=== PATIENT | female | born 1990 | race African-American/Black ===

== ENCOUNTER 2017-06-08 11:32 | Emergency (ER) | payer MEDICAID ==
[~2017-06-08] VITALS: Ht 167.6 cm; Wt 111.0 kg
[~2017-06-08 11:32] MED LIST: BACT800T5 PO; CEPH500 PO; DOXY100T PO; IBUP-232 PO; TRAM50 PO
[2017-06-08 11:34] VITALS: BP 112/69; PULSE 84; RESP 20; TEMP 98.1; O2SAT 89
[2017-06-08] MEDS ORDERED: SODIUM CHLOR 0.9% 1000 ML INJ 1,000 ML IV ONE (11:50)
--- NOTE | 2017-06-08 11:53 | PD ---
HPI Chief Complaint: Headache Time Seen by Provider: 11:45 Travel History International Travel<30 days: No Contact w/Intl Traveler<30days: No Traveled to known affect area: No History of Present Illness HPI This is a 26-year-old female who presents for evaluation of headache. Symptoms started 2-3 days ago. Pain is a throbbing frontal headache which is constant, worse when she is leaning forward and alleviated when she is leaning backwards. She has a history of migraines, occurs about once a week, this feels similar but worse than her usual migraines, unrelieved with [id number] Tylenol. Associated symptoms include mild nausea, photophobia and phonophobia. She denies vomiting, fevers or chills, rash, recent travel, recent illness, blurred vision. She reports that she is currently on her menstrual period. No other complaints at this time. PFSH Past Medical History GERD: Yes ?: Not LMP: 06/08/17 : 3 Para: 3 Past Surgical History Section: Yes Cholecystectomy: Yes Social History Alcohol Use: No Tobacco Use: No Substance Use: No Allergies-Medications (Allergen,Severity, Reaction): Coded Allergies: iodine (Unverified Allergy, Mild, 05/19/17) potassium iodide (Unverified Allergy, Mild, 05/19/17) povidone-iodine (Unverified Allergy, Mild, 05/19/17) sodium iodide (Unverified Allergy, Mild, 05/19/17) sodium iodide (Unverified Allergy, Mild, 05/19/17) Reported Meds & Prescriptions Reported Meds & Active Scripts Active No Active Prescriptions or Reported Medications Review of Systems Except as stated in HPI: all other systems reviewed are Neg Physical Exam Narrative GENERAL: Well-developed well-nourished female in no acute distress sitting upright in hospital bed vital signs reviewed SKIN: Warm and dry. HEAD: Atraumatic. Normocephalic. EYES: Pupils equal and round reactive to light extraocular muscles are intact. No scleral icterus. No injection or drainage. ENT: No nasal bleeding or discharge. Mucous membranes pink and moist. NECK: Trachea midline. No JVD. CARDIOVASCULAR: Regular rate and rhythm. No murmur appreciated. RESPIRATORY: No accessory muscle use. Clear to auscultation. Breath sounds equal bilaterally. GASTROINTESTINAL: Abdomen soft, non-tender, nondistended. Hepatic and splenic margins not palpable. MUSCULOSKELETAL: No obvious deformities. No edema NEUROLOGICAL: Awake and alert. No obvious cranial nerve deficits. Motor grossly within normal limits. Normal speech. Data Data Last Documented VS Vital Signs Date Time Temp Pulse Resp B/P (MAP) Pulse Ox O2 Delivery O2 Flow Rate FiO2 06/08/17 11:55 15 06/08/17 11:34 98.1 84 112/69 (83) 89 Room Air Orders Orders Iv Access Insert/Monitor (06/08/17 11:50) Ketorolac Inj (Toradol Inj) (06/08/17 12:00) Diphenhydramine Inj (Benadryl Inj) (06/08/17 12:00) Metoclopramide Inj (Reglan Inj) (06/08/17 12:00) Sodium Chlor 0.9% 1000 Ml Inj (Ns 1000 M (06/08/17 11:50) MDM Medical Decision Making Medical Screen Exam Complete: Yes Emergency Medical Condition: Yes Medical Record Reviewed: Yes Differential Diagnosis Migraine without aura, tension headache, pseudotumor cerebri, subarachnoid hemorrhage, intracranial mass, sinusitis Narrative Course This is a 26-year-old female with history of migraines presents for evaluation of a 2 to three-day throbbing frontal headache with photophobia, phonophobia, consistent with previous migraines but worse than usual which is what prompted evaluation for relief. Physical examination reveals no focal neurologic deficits. The plan is to treat the patient symptomatically with IV fluids, Toradol, Reglan and Benadryl. She will be monitored closely. 1251: Upon reexamination the patient feels significantly improved, her headache has resolved. She is stable for discharge. Diagnosis Primary Impression: Migraine Qualified Codes: G43.009 - Migraine without aura, not intractable, without status migrainosus Additional Instructions: Follow-up close with primary care physician. Return for any emergent medical conditions. Med/Other Pt SpecificInfo: No Change to Meds Scripts No Active Prescriptions or Reported Meds Disposition: 01 DISCHARGE HOME Condition: Stable Clem Cisneros Jun 08, 2017 11:53
[2017-06-08] MEDS ORDERED: METOCLOPRAMIDE HCL 10 MG/2 ML VIAL IVP ONE (12:00)
[2017-06-08] MEDS ORDERED: diphenhydrAMINE HCL 50 MG/ML VIAL IVP ONE (12:00)
[2017-06-08] MEDS ORDERED: KETOROLAC TROMETHAMINE 30 MG/ML (IVP) VIAL IVP ONE (12:00)
== END 2017-06-08 13:48 | disposition home or self-care (01) ==
LOC: NEPK 11:32
DX: G43.009 Migraine without aura, not intractable, without status migrainosus (principal)
CPT/HCPCS: 96374; 96375; 99284; J1200; J1885; J2765; J7030

== ENCOUNTER 2018-01-04 05:34 | Emergency (ER) | payer MEDICAID ==
[~2018-01-04] VITALS: Ht 167.6 cm; Wt 100.0 kg
[2018-01-04 05:38] VITALS: BP 127/85; PULSE 68; RESP 20; TEMP 98.8; O2SAT 100
[2018-01-04] MEDS ORDERED: SODIUM CHLORIDE 0.9% FLUSH 10 ML FLUSH IV FLUSH PRN (06:00)
[2018-01-04] MEDS ORDERED: KETOROLAC TROMETHAMINE 30 MG/ML (IVP) VIAL IVP ONE (06:30)
[2018-01-04 06:39] LABS: AUTOMATED NEUTROPHIL # 5.8 TH/MM3 (1.8-7.7); BASOPHIL % 0.4 % (0.0-2.0); EOSINOPHIL % 0.3 % (0.0-4.0); HEMATOCRIT 38.1 % (35.0-46.0); HEMOGLOBIN 12.7 GM/DL (11.6-15.3); LYMPH % 22.3 % (9.0-44.0); LYMPHOCYTE # 1.9 TH/MM3 (1.0-4.8); MEAN CELL VOLUME 88.5 FL (80.0-100.0); MEAN CORPUSCULAR HEMOGLOBIN 29.5 PG (27.0-34.0); MEAN CORPUSCULAR HGB CONC 33.3 % (32.0-36.0); MEAN PLATELET VOLUME 8.7 FL (7.0-11.0); MONO % 9.7 % (0.0-8.0); MONOCYTE # 0.8 TH/MM3 (0-0.9); NEUT % 67.3 % (16.0-70.0); PLATELET COUNT 291 TH/MM3 (150-450); RED BLOOD COUNT 4.31 MIL/MM3 (4.00-5.30); RED CELL DISTRIBUTION WIDTH 14.2 % (11.6-17.2); WHITE BLOOD COUNT 8.6 TH/MM3 (4.0-11.0)
[2018-01-04] MEDS ORDERED: NAPR500T2 PO (06:51)
--- NOTE | 2018-01-04 06:51 | PD ---
HPI Chief Complaint: Abdominal Pain Time Seen by Provider: 05:46 Travel History International Travel<30 days: No Contact w/Intl Traveler<30days: No Traveled to known affect area: No History of Present Illness HPI 27-year-old woman presents emergency department complaining of right lower quadrant abdominal pain. Symptoms started about a week or so ago. Worse with palpation. Been constant since onset. She has had some decreased appetite with it. States she otherwise has been feeling generally well and healthy. She is sexually active one male partner. No vaginal discharge. No symptoms. History of , tubal ligation, and cholecystectomy. Last menstrual period was at the end of December. History Past Medical History Narrative Medical Gastritis Tetanus Vaccination: Unknown Influenza Vaccination: No LMP: 01/01/2018 : 3 Para: 3 Social History Alcohol Use: No Tobacco Use: No Allergies-Medications (Allergen,Severity, Reaction): Coded Allergies: iodine (Unverified Allergy, Mild, 01/04/18) potassium iodide (Unverified Allergy, Mild, 01/04/18) povidone-iodine (Unverified Allergy, Mild, 01/04/18) sodium iodide (Unverified Allergy, Mild, 01/04/18) sodium iodide (Unverified Allergy, Mild, 01/04/18) Reported Meds & Prescriptions Reported Meds & Active Scripts Active Naproxen 500 Mg Tab 500 Mg PO BID Review of Systems Except as stated in HPI: all other systems reviewed are Neg Physical Exam Narrative GENERAL: Well-appearing 27-year-old woman, no acute distress. SKIN: Focused skin assessment warm/dry. HEAD: Atraumatic. Normocephalic. EYES: Pupils equal and round. No scleral icterus. No injection or drainage. ENT: No nasal bleeding or discharge. Mucous membranes pink and moist. NECK: Trachea midline. No JVD. CARDIOVASCULAR: Regular rate and rhythm. No murmur appreciated. RESPIRATORY: No accessory muscle use. Clear to auscultation. Breath sounds equal bilaterally. GASTROINTESTINAL: Abdomen is obese, soft, minimal lower abdominal tenderness, more on the right side. No guarding. MUSCULOSKELETAL: No obvious deformities. No clubbing. No cyanosis. No edema. NEUROLOGICAL: Awake and alert. No obvious cranial nerve deficits. Motor grossly within normal limits. Normal speech. : Normal external female genitalia. Scant vaginal discharge. Cervix is grossly normal. On exam, minimal cervical motion tenderness. No palpable uterine enlargement or adnexal masses. Data Data Last Documented VS Vital Signs Date Time Temp Pulse Resp B/P (MAP) Pulse Ox O2 Delivery O2 Flow Rate FiO2 01/04/18 05:38 98.8 68 20 127/85 (99) 100 Orders Orders Complete Blood Count With Diff (01/04/18 06:00) Comprehensive Metabolic Panel (01/04/18 06:00) Lipase (01/04/18 06:00) Urinalysis - C+S If Indicated (01/04/18 06:00) Iv Access Insert/Monitor (01/04/18 06:00) Sodium Chloride 0.9% Flush (Ns Flush) (01/04/18 06:00) Ed Urine Pregnancytest Poc (01/04/18 06:00) Gc And Chlamydia Pcr (01/04/18 06:02) Wet Prep Profile (01/04/18 06:02) Ketorolac Inj (Toradol Inj) (01/04/18 06:30) Labs Laboratory Tests Test 01/04/18 05:44 01/04/18 06:00 01/04/18 06:10 01/04/18 06:20 White Blood Count 8.6 TH/MM3 Red Blood Count 4.31 MIL/MM3 Hemoglobin 12.7 GM/DL Hematocrit 38.1 % Mean Corpuscular Volume 88.5 FL Mean Corpuscular Hemoglobin 29.5 PG Mean Corpuscular Hemoglobin Concent 33.3 % Red Cell Distribution Width 14.2 % Platelet Count 291 TH/MM3 Mean Platelet Volume 8.7 FL Neutrophils (%) (Auto) 67.3 % Lymphocytes (%) (Auto) 22.3 % Monocytes (%) (Auto) 9.7 % Eosinophils (%) (Auto) 0.3 % Basophils (%) (Auto) 0.4 % Neutrophils # (Auto) 5.8 TH/MM3 Lymphocytes # (Auto) 1.9 TH/MM3 Monocytes # (Auto) 0.8 TH/MM3 Eosinophils # (Auto) 0.0 TH/MM3 Basophils # (Auto) 0.0 TH/MM3 CBC Comment DIFF FINAL Differential Comment Urine Color YELLOW Urine Turbidity CLOUDY Urine pH 6.5 Urine Specific [place] 1.024 Urine Protein 30 mg/dL Urine Glucose (UA) NEG mg/dL Urine Ketones NEG mg/dL Urine Occult Blood NEG Urine Nitrite NEG Urine Bilirubin NEG Urine Urobilinogen LESS THAN 2.0 MG/DL Urine Leukocyte Esterase SMALL Urine RBC 2 /hpf Urine WBC 4 /hpf Urine Squamous Epithelial Cells 29 /hpf Urine Bacteria RARE /hpf Urine Mucus FEW /lpf Microscopic Urinalysis Comment CULT NOT INDICATED Clue Cells (Wet Prep) NONE SEEN Vaginal Trichomonas (Wet Prep) NONE SEEN Vaginal Yeast (Wet Prep) NONE SEEN MDM Medical Decision Making Medical Screen Exam Complete: Yes Emergency Medical Condition: Yes Interpretation(s) LABS: CBC is unremarkable. CMP UA is unremarkable. Wet preps negative GC chlamydia pending. Differential Diagnosis Ovarian cyst, ovarian mass, appendicitis, PID, UTI, other Narrative Course Medical decision making INITIAL is a 27-year-old who presents emerged prior right lower quadrant abdominal pain. Really benign abdominal exam. Symptoms been ongoing for a week. Only she has appendicitis. She has minimal pelvic tenderness on bimanual exam. No vaginal discharge. Sexually active one male partner but only she has PID. I think this is likely . Recommend NSAIDs, will check swabs, treat if positive, otherwise outpatient follow-up. Diagnosis Primary Impression: Abdominal pain Additional Instructions: Take naproxen as needed for pain. Follow-up with your [facility] doctor in the next 1-2 weeks for repeat evaluation if symptoms persist. Return to the emergency department for any worsening abdominal pain, fevers, vomiting, or any other new or worsening symptoms. Med/Other Pt SpecificInfo: Prescription(s) given Scripts Naproxen (Naproxen) 500 Mg Tab 500 MG PO BID, #20 TAB 0 Refills Prov: Kvng Roberts MD 01/04/18 Disposition: DISCHARGE HOME Condition: Stable Kvng Roberts MD Jan 04, 2018 06:51
[2018-01-04 06:57] LABS: BACTERIA, URINE RARE /hpf; BILIRUBIN, URINE NEG (NEG); BLOOD, URINE NEG (NEG); GLUCOSE,URINE NEG (NEG); KETONE, URINE NEG (NEG); MUCUS URINE FEW /lpf (OCC); NITRITE,URINE NEG (NEG); PH, URINE 6.5 (5.0-8.5); SQUAMOUS EPITHELIAL CELL URINE 29 /hpf (0-5); URINE COLOR YELLOW (YELLW/STRAW); URINE LEUKOCYTE ESTERASE SMALL (NEG)
[2018-01-04 07:07] LABS: ALBUMIN 3.4 GM/DL (3.4-5.0); AST (GOT) 16 U/L (15-37); BLOOD UREA NITROGEN 10 MG/DL (7-18); CALCIUM 9.2 MG/DL (8.5-10.1); CHLORIDE 107 MEQ/L (98-107); CREATININE 0.79 MG/DL (0.50-1.00); GLOMERULAR FILTRATION RATE 104 ML/MIN (>89); GLUCOSE,RANDOM 105 MG/DL (74-106); SODIUM (NA) 138 MEQ/L (136-145)
[2018-01-04 07:13] LABS: ALKALINE PHOSPHATASE 76 U/L (45-117); ALT (GPT) 21 U/L (10-53); TOTAL BILIRUBIN ADULT 1.2 MG/DL (0.2-1.0); TOTAL PROTEIN 7.8 GM/DL (6.4-8.2)
[2018-01-05] MEDS ORDERED: PROM25TA10 PO (16:19)
[2018-01-05] MEDS ORDERED: IBUP-232 PO (16:19)
== END 2018-01-04 07:18 | disposition home or self-care (01) ==
LOC: NEPC 05:34
DX: R10.31 Right lower quadrant pain (principal)
CPT/HCPCS: 80053; 81001; 83690; 84703; 85025; 87210; 87491; 87591; 96374; 99284; J1885

== ENCOUNTER 2018-01-05 10:31 | Emergency (ER) | payer MEDICAID ==
[~2018-01-05 10:31] MED LIST changes: -BACT800T5 PO; -CEPH500 PO; -DOXY100T PO; -IBUP-232 PO; +NAPR500T2 PO; -TRAM50 PO
[2018-01-05 10:58] VITALS: BP 129/82; PULSE 73; RESP 16; TEMP 99.7; O2SAT 100
[2018-01-05] MEDS ORDERED: ONDANSETRON ODT 4 MG TAB PO ONE (11:15)
[2018-01-05 11:37] LABS: AUTOMATED NEUTROPHIL # 7.3 TH/MM3 (1.8-7.7); BASOPHIL # 0.1 TH/MM3 (0-0.2); BASOPHIL % 0.7 % (0.0-2.0); EOSINOPHIL # 0.2 TH/MM3 (0-0.4); EOSINOPHIL % 1.7 % (0.0-4.0); HEMATOCRIT 40.4 % (35.0-46.0); HEMOGLOBIN 13.4 GM/DL (11.6-15.3); LYMPH % 15.7 % (9.0-44.0); LYMPHOCYTE # 1.6 TH/MM3 (1.0-4.8); MEAN CELL VOLUME 88.8 FL (80.0-100.0); MEAN CORPUSCULAR HEMOGLOBIN 29.5 PG (27.0-34.0); MEAN CORPUSCULAR HGB CONC 33.2 % (32.0-36.0); MEAN PLATELET VOLUME 8.7 FL (7.0-11.0); MONO % 9.3 % (0.0-8.0); MONOCYTE # 0.9 TH/MM3 (0-0.9); NEUT % 72.6 % (16.0-70.0); PLATELET COUNT 296 TH/MM3 (150-450); RED BLOOD COUNT 4.54 MIL/MM3 (4.00-5.30); RED CELL DISTRIBUTION WIDTH 14.2 % (11.6-17.2); WHITE BLOOD COUNT 10.1 TH/MM3 (4.0-11.0)
--- NOTE | 2018-01-05 11:45 | PD ---
HPI Chief Complaint: Abdominal Pain Time Seen by Provider: 11:45 Travel History International Travel<30 days: No Contact w/Intl Traveler<30days: No Traveled to known affect area: No History of Present Illness HPI 27-year-old -[place] female presents emergency department with worsening and ongoing right sided abdominal pain. She states is localized now to the right lower quadrant. Patient was seen on January 04 and felt to have a ovarian cyst, with negative urine, normal white count, and negative GC chlamydia. Imaging was not done at that time. Patient states she has ongoing nausea, vomiting, and pain. She states she has not eaten since Thursday, and is now Thursday. She states decreased fluid intake with decreased urine output. Patient states she has felt feverish. She denies upper respiratory symptoms, chest pain, or shortness of breath. She denies flank pain or vaginal discharge. She is sexually active with one single partner. She denies diarrhea. Pain is currently 8-9 out of 10. Patient is allergic to iodine. PFSH Past Medical History Diminished Hearing: No GERD: Yes : 3 Para: 3 Past Surgical History Section: Yes Cholecystectomy: Yes Social History Alcohol Use: No Tobacco Use: No Substance Use: No Allergies-Medications (Allergen,Severity, Reaction): Coded Allergies: iodine (Unverified Allergy, Mild, 01/05/18) potassium iodide (Unverified Allergy, Mild, 01/05/18) povidone-iodine (Unverified Allergy, Mild, 01/05/18) sodium iodide (Unverified Allergy, Mild, 01/05/18) sodium iodide (Unverified Allergy, Mild, 01/05/18) Reported Meds & Prescriptions Reported Meds & Active Scripts Active Naproxen 500 Mg Tab 500 Mg PO BID Review of Systems Except as stated in HPI: all other systems reviewed are Neg General / Constitutional: Positive: Fever (Subjective), Chills Eyes: No: Visual changes HENT: Positive: Lightheadedness, No: Headaches, Vertigo, Sore Throat, Rhinitis , Rhinorrhea, Congestion, Nosebleed, Neck Stiffness, Neck Pain, Masses, Dental Difficulties, Earache Cardiovascular: No: Chest Pain or Discomfort Respiratory: No: Shortness of Breath Gastrointestinal: Positive: Nausea, Vomiting, Abdominal Pain, Loss of Appetite , No: Diarrhea, Hematemesis, Hematochezia, Constipation, Indigestion, Dysphagia Genitourinary: Positive: Decreased Urinary Output, No: Urgency, Frequency, Dysuria Musculoskeletal: No: Pain Skin: No Rash Neurologic: No: Weakness Psychiatric: No: Depression Endocrine: No: Polydipsia Hematologic/Lymphatic: No: Easy Bruising Physical Exam Narrative GENERAL: Patient appears in moderate distress per SKIN: Warm and dry. She has decreased pallor but no diaphoresis. Turgor is somewhat diminished HEAD: Atraumatic. Normocephalic. EYES: Pupils equal and round. No scleral icterus. No injection or drainage. ENT: No nasal bleeding or discharge. Mucous membranes pink and somewhat dry. Pharynx is clear. Airways patent NECK: Trachea midline. Supple nontender. CARDIOVASCULAR: Regular rate and rhythm. RESPIRATORY: No accessory muscle use. Clear to auscultation. Breath sounds equal bilaterally. GASTROINTESTINAL: Abdomen soft, moderate right sided tenderness in both upper and lower quadrant somewhat more localized to the right lower, nondistended. No CVA tenderness. Mild guarding. Question of rebound. Hepatic and splenic margins not palpable. MUSCULOSKELETAL: Extremities without clubbing, cyanosis, or edema. No obvious deformities. NEUROLOGICAL: Awake and alert. No obvious cranial nerve deficits. Motor grossly within normal limits. Five out of 5 muscle strength in the arms and legs. Normal speech. PSYCHIATRIC: Appropriate mood and affect; insight and judgment normal. Data Data Last Documented VS Vital Signs Date Time Temp Pulse Resp B/P (MAP) Pulse Ox O2 Delivery O2 Flow Rate FiO2 01/05/18 14:55 77 16 128/82 (97) 99 Room Air 01/05/18 10:58 99.7 Orders Orders Complete Blood Count With Diff (01/05/18 11:02) Comprehensive Metabolic Panel (01/05/18 11:02) Urinalysis - C+S If Indicated (01/05/18 11:02) Ed Urine Pregnancytest Poc (01/05/18 11:02) Iv Access Insert/Monitor (01/05/18 11:02) Oxygen Administration (01/05/18 11:02) Oximetry (01/05/18 11:02) Lipase (01/05/18 11:02) Ondansetron Odt (Zofran Odt) (01/05/18 11:15) Lactic Acid (01/05/18 11:48) Ct Abd/Pel W/O Iv Contrast (01/05/18 11:48) Ecg Monitoring (01/05/18 11:48) NPO (01/05/18 11:48) Morphine Inj (Morphine Inj) (01/05/18 12:00) Ondansetron Inj (Zofran Inj) (01/05/18 12:00) Sodium Chlor 0.9% 1000 Ml Inj (Ns 1000 M (01/05/18 11:48) Sodium Chloride 0.9% Flush (Ns Flush) (01/05/18 12:00) Chest, Single Ap (01/05/18 11:48) Famotidine Inj (Pepcid Inj) (01/05/18 12:00) Ondansetron Inj (Zofran Inj) (01/05/18 15:30) Labs Laboratory Tests Test 01/05/18 11:13 01/05/18 11:28 01/05/18 15:20 White Blood Count 10.1 TH/MM3 Red Blood Count 4.54 MIL/MM3 Hemoglobin 13.4 GM/DL Hematocrit 40.4 % Mean Corpuscular Volume 88.8 FL Mean Corpuscular Hemoglobin 29.5 PG Mean Corpuscular Hemoglobin Concent 33.2 % Red Cell Distribution Width 14.2 % Platelet Count 296 TH/MM3 Mean Platelet Volume 8.7 FL Neutrophils (%) (Auto) 72.6 % Lymphocytes (%) (Auto) 15.7 % Monocytes (%) (Auto) 9.3 % Eosinophils (%) (Auto) 1.7 % Basophils (%) (Auto) 0.7 % Neutrophils # (Auto) 7.3 TH/MM3 Lymphocytes # (Auto) 1.6 TH/MM3 Monocytes # (Auto) 0.9 TH/MM3 Eosinophils # (Auto) 0.2 TH/MM3 Basophils # (Auto) 0.1 TH/MM3 CBC Comment DIFF FINAL Differential Comment Blood Urea Nitrogen 10 MG/DL Creatinine 0.90 MG/DL Random Glucose 91 MG/DL Total Protein 8.4 GM/DL Albumin 3.6 GM/DL Calcium Level 9.2 MG/DL Alkaline Phosphatase 87 U/L Aspartate Amino Transf (AST/SGOT) 15 U/L Alanine Aminotransferase (ALT/SGPT) 19 U/L Total Bilirubin 1.6 MG/DL Sodium Level 138 MEQ/L Potassium Level 3.6 MEQ/L Chloride Level 106 MEQ/L Carbon Dioxide Level 23.8 MEQ/L Anion Gap 8 MEQ/L Estimat Glomerular Filtration Rate 90 ML/MIN Lipase 98 U/L Lactic Acid Level 1.1 mmol/L Urine Color YELLOW Urine Turbidity HAZY Urine pH 7.5 Urine Specific [place] 1.028 Urine Protein 30 mg/dL Urine Glucose (UA) NEG mg/dL Urine Ketones 150 mg/dL Urine Occult Blood NEG Urine Nitrite NEG Urine Bilirubin NEG Urine Urobilinogen 4.0 MG/DL Urine Leukocyte Esterase NEG Urine RBC 6 /hpf Urine WBC 2 /hpf Urine Squamous Epithelial Cells 18 /hpf Urine Bacteria FEW /hpf Urine Mucus MANY /lpf Microscopic Urinalysis Comment CULT NOT INDICATED MDM Medical Decision Making Medical Screen Exam Complete: Yes Emergency Medical Condition: Yes Medical Record Reviewed: Yes Differential Diagnosis Nausea and vomiting. Bowel obstruction. Appendicitis. Gallbladder disease. Narrative Course Patient is uncomfortable, but appears medically stable. Labs ordered including CBC, CMP, lipase, lactic acid, urinalysis. Urine . Chest x-ray is ordered as well as CT of the abdomen and pelvis without contrast due to her allergy. IV access is obtained the patient is given 1000 mL normal saline bolus 2, Zofran 4 mg IV, and 4 mg morphine IV. Patient is given 20 mg Pepcid IV. CBC is within normal limits. Chemistries are unremarkable except for total bilirubin of 1.6, and protein of 8.4. Lactic acid is normal at 1.1. Chest x-ray is unremarkable for acute process per radiologist. CT scan of the abdomen shows no acute process per radiologist. Urinalysis is unremarkable for acute process. Patient is felt stable for discharge with diagnosis of viral gastroenteritis. She does not have a surgical abdomen. Patient is given Phenergan 25 mg every 6 hours as needed nausea and vomiting # 20. Patient also given ibuprofen 600 mg 4 times daily #40. Patient can take Tylenol as well for pain as needed. Patient should rest and push fluids for the next 2 days. Work note is given. Diagnosis Primary Impression: Abdominal pain Qualified Codes: R10.84 - Generalized abdominal pain Additional Impression: Viral gastroenteritis Referrals: Primary Care Physician Patient Instructions: Acute Diarrhea (ED), Acute Nausea and Vomiting (ED), Colitis (ED), General Instructions Additional Instructions: CBC is within normal limits. Chemistries are unremarkable except for total bilirubin of 1.6, and protein of 8.4. Lactic acid is normal at 1.1. Chest x-ray is unremarkable for acute process per radiologist. CT scan of the abdomen shows no acute process per radiologist. Urinalysis is unremarkable for acute process. Patient is felt stable for discharge with diagnosis of viral gastroenteritis. She does not have a surgical abdomen. Patient is given Phenergan 25 mg every 6 hours as needed nausea and vomiting # 20. Patient also given ibuprofen 600 mg 4 times daily #40. Patient can take Tylenol as well for pain as needed. Patient should rest and push fluids for the next 2 days. Work note is given. Med/Other Pt SpecificInfo: Prescription(s) given Scripts Ibuprofen (Ibuprofen) 600 Mg Tab 600 MG PO Q6H Y for Pain/Inflammation, #40 TAB 0 Refills Prov: Jasbir Felipe MD 01/05/18 Promethazine (Phenergan) 25 Mg Tablet 25 MG PO Q6H Y for NAUSEA OR VOMITING, #20 TAB 0 Refills Prov: Jasbir Felipe MD 01/05/18 Disposition: 01 DISCHARGE HOME Condition: Stable Basim Rodriguez Jan 05, 2018 11:45
[2018-01-05 11:55] VITALS: O2SAT 99
[2018-01-05 11:55] LABS: ALBUMIN 3.6 GM/DL (3.4-5.0); AST (GOT) 15 U/L (15-37); BICARBONATE 23.8 MEQ/L (21.0-32.0); BLOOD UREA NITROGEN 10 MG/DL (7-18); CALCIUM 9.2 MG/DL (8.5-10.1); CHLORIDE 106 MEQ/L (98-107); GLOMERULAR FILTRATION RATE 90 ML/MIN (>89); GLUCOSE,RANDOM 91 MG/DL (74-106); SODIUM (NA) 138 MEQ/L (136-145)
[2018-01-05] MEDS: SODIUM CHLOR 0.9% 1000 ML INJ 1,000 ML IV SCH ×2 (11:57→13:57)
[2018-01-05 11:58] LABS: ALKALINE PHOSPHATASE 87 U/L (45-117); ALT (GPT) 19 U/L (10-53); TOTAL BILIRUBIN ADULT 1.6 MG/DL (0.2-1.0); TOTAL PROTEIN 8.4 GM/DL (6.4-8.2)
[2018-01-05 12:00] VITALS: BP 120/84; PULSE 60; RESP 18; O2SAT 99
[2018-01-05] MEDS ORDERED: MORPHINE SULFATE 4 MG/ML INJ IV PUSH ONE (12:00)
[2018-01-05] MEDS ORDERED: SODIUM CHLORIDE 0.9% FLUSH 10 ML FLUSH IV FLUSH PRN (12:00)
[2018-01-05] MEDS ORDERED: FAMOTIDINE 20 MG/2 ML VIAL IV PUSH ONE (12:00)
[2018-01-05] MEDS ORDERED: ONDANSETRON HCL 4 MG/2 ML VIAL IVP ONE (12:00)
--- NOTE | 2018-01-05 12:57 | RADRPT ---
EXAM DATE/TIME: 01/05/2018 12:19 [facility] COMPARISON: No previous studies available for comparison. INDICATIONS : Right lower quadrant pain for 4 days. ORAL CONTRAST: No oral contrast ingested. RADIATION DOSE: 16.18 CTDIvol (mGy) MEDICAL HISTORY : None SURGICAL HISTORY : Cholecystectomy. ENCOUNTER: Initial ACUITY: 4 - 6 days PAIN SCALE: 5/10 LOCATION: Right lower quadrant TECHNIQUE: Volumetric scanning of the abdomen and pelvis was performed. Using automated exposure control and ad justment of the mA and/or kV according to patient size, radiation dose was kept as low as reasonably achievable to obtain optimal diagnostic quality images. DICOM format image data is available electro nically for review and comparison. FINDINGS: LOWER LUNGS: The visualized lower lungs are clear. LIVER: Homogeneous density without lesion for noncontrast technique. There is no dilation of the intra-or e xtrahepatic biliary tree. Cholecystectomy. SPLEEN: Normal size without lesion. PANCREAS: Within normal limits. KIDNEYS: Normal in size and shape. There is no mass, stone, or hydronephrosis. ADRENAL GLANDS: Within normal limits. VASCULAR: There is no aortic aneurysm. BOWEL/MESENTERY: No dilated loops of small or large bowel. The stomach is nondistended. ABDOMINAL WALL: Within normal limits. RETROPERITONEUM: There is no lymphadenopathy. BLADDER: No wall thickening or mass. REPRODUCTIVE: Anteverted uterus. No evidence of free fluid. INGUINAL: There is no lymphadenopathy or hernia. MUSCULOSKELETAL: Within normal limits for patient age. CONCLUSION: 1. Negative noncontrast CT abdomen/pelvis. No dilated loops of small or large bowel. Yvon Turner MD on January 05, 2018 at 12:53 Board Certified Radiologist. This report was verified electronically.
--- NOTE | 2018-01-05 13:11 | RADRPT ---
EXAM DATE/TIME: 01/05/2018 12:36 [facility] COMPARISON: No previous studies available for comparison. INDICATIONS : Shortness of breath. MEDICAL HISTORY : None. SURGICAL HISTORY : None. ENCOUNTER: Initial ACUITY: 4 - 6 days PAIN SCORE: 0/10 LOCATION: Bilateral chest FINDINGS: A single view of the chest demonstrates the lungs to be symmetrically aerated without evidence of mas s, infiltrate or effusion. The cardiomediastinal contours are unremarkable. Osseous structures are intact. CONCLUSION: No evidence of acute cardiopulmonary disease. Teodoro Whitehead MD on January 05, 2018 at 13:08 Board Certified Radiologist. This report was verified electronically.
[2018-01-05 14:55] VITALS: BP 128/82; PULSE 77; RESP 16; O2SAT 99
[2018-01-05] MEDS ORDERED: ONDANSETRON HCL 4 MG/2 ML VIAL IV PUSH ONE (15:30)
[2018-01-05 15:48] LABS: BACTERIA, URINE FEW /hpf; BILIRUBIN, URINE NEG (NEG); BLOOD, URINE NEG (NEG); GLUCOSE,URINE NEG (NEG); KETONE, URINE 150 mg/dL (NEG); MUCUS URINE MANY /lpf (OCC); NITRITE,URINE NEG (NEG); PH, URINE 7.5 (5.0-8.5); SQUAMOUS EPITHELIAL CELL URINE 18 /hpf (0-5); URINE COLOR YELLOW (YELLW/STRAW); URINE LEUKOCYTE ESTERASE NEG (NEG)
[2018-01-05] MEDS ORDERED: PROM25TA10 PO (16:19)
[2018-01-05] MEDS ORDERED: IBUP-232 PO (16:19)
== END 2018-01-05 16:38 | disposition home or self-care (01) ==
LOC: NEPD 10:31
DX: A08.4 Viral intestinal infection, unspecified (principal); K21.9 Gastro-esophageal reflux disease without esophagitis
CPT/HCPCS: 71045; 74176; 80053; 81001; 83605; 83690; 84703; 85025; 96361; 96374; 96375; 96376; 99285; J2270; J2405; J7030